=== PATIENT | female | born 1985 | race Caucasian/White ===

== ENCOUNTER 2017-02-28 06:37 | Inpatient (IN) | payer BC, OTHER ==
[~2017-02-28] VITALS: Ht 152.4 cm; Wt 86.2 kg
[2017-02-28] VITALS (8 sets, daily range): BP systolic 100–118; BP diastolic 50–71
[~2017-02-28 06:37] MED LIST: COLACE100 MG PO; Colace PO; Dilaudid PO; Feosol PO; Motrin PO; PRENATAL TABLE1 EAC3 PO
[2017-02-28 07:56] LABS: EOSINOPHIL (%) 1.2 % (0-5); EOSINOPHIL COUNT 0.1 K/uL (0-0.3); HEMATOCRIT 31.2 % (36.0-46.0); IMMATURE GRANULOCYTE (%) 1.5 % (0.0-0.7); IMMATURE GRANULOCYTE COUNT 0.2 K/uL; INSTRUMENT ABS NEUTROPHIL CT 7.1 K/uL; LYMPHOCYTE COUNT 2.1 K/uL (1.0-2.8); MCH 24.6 PG (29.0-34.0); MCHC 31.1 G/DL (30.0-36.0); MCV 79.2 FL (83-99); MEAN PLAT.VOLUME 9.9 uM^3 (9.5-12.4); MONOCYTE (%) 4.9 % (3-12); MONOCYTE COUNT 0.5 K/uL (0-0.8); NEUTROPHIL (%) 71.2 % (45-76); NEUTROPHIL COUNT 7.1 K/uL (1.8-6.4); PLATELET COUNT 295 K/uL (156-360); RBC DIS.WIDTH-CV 15.7 % (11.8-14.6); RBC DIS.WIDTH-SD 44.7 % (39-53); RED BLOOD COUNT 3.94 M/uL (3.80-5.20)
[2017-02-28 15:57] LABS: HEMATOCRIT 23.6 % (36.0-46.0); MCH 25.1 PG (29.0-34.0); MCHC 31.4 G/DL (30.0-36.0); MEAN PLAT.VOLUME 9.6 uM^3 (9.5-12.4); PLATELET COUNT 244 K/uL (156-360); RBC DIS.WIDTH-CV 15.7 % (11.8-14.6); RBC DIS.WIDTH-SD 45.2 % (39-53); WHITE BLOOD COUNT 12.2 K/uL (4.1-10.2)
[2017-02-28 16:08] LABS: RED BLOOD COUNT 2.95 M/uL (3.80-5.20)
[2017-03-01 03:53] VITALS: BP 94/50
[2017-03-01 06:24] LABS: EOSINOPHIL COUNT 0.1 K/uL (0-0.3); HEMATOCRIT 22.3 % (36.0-46.0); IMMATURE GRANULOCYTE (%) 0.9 % (0.0-0.7); IMMATURE GRANULOCYTE COUNT 0.1 K/uL; INSTRUMENT ABS NEUTROPHIL CT 7.3 K/uL; LYMPHOCYTE COUNT 1.6 K/uL (1.0-2.8); MCH 24.4 PG (29.0-34.0); MCHC 30.5 G/DL (30.0-36.0); MCV 79.9 FL (83-99); MEAN PLAT.VOLUME 9.6 uM^3 (9.5-12.4); MONOCYTE (%) 6.6 % (3-12); MONOCYTE COUNT 0.6 K/uL (0-0.8); NEUTROPHIL (%) 75.2 % (45-76); NEUTROPHIL COUNT 7.3 K/uL (1.8-6.4); PLATELET COUNT 216 K/uL (156-360); RBC DIS.WIDTH-CV 15.9 % (11.8-14.6); RED BLOOD COUNT 2.79 M/uL (3.80-5.20); WHITE BLOOD COUNT 9.7 K/uL (4.1-10.2)
[2017-03-01 07:26] VITALS: BP 101/57
[2017-03-01 11:40] VITALS: BP 109/55
[2017-03-01 15:40] VITALS: BP 102/55
[2017-03-01 19:00] VITALS: BP 107/57
[2017-03-01 22:30] VITALS: BP 104/52
[2017-03-02] VITALS (7 sets, daily range): BP systolic 92–116; BP diastolic 54–65
[2017-03-02] MEDS ORDERED: DOCUSATE SODIU100 MG PO (13:59)
[2017-03-02] MEDS ORDERED: FERROUS SULFAT325 MG PO (13:59)
[2017-03-02] MEDS ORDERED: IBUPROFEN800 MG PO (13:59)
[2017-03-02] MEDS ORDERED: HYDROMORPHONE HC2 MG PO (14:00)
[2017-03-02 16:34] LABS: HEMATOCRIT 21.6 % (36.0-46.0); MCH 25.8 PG (29.0-34.0); MCHC 31.5 G/DL (30.0-36.0); MCV 81.8 FL (83-99); MEAN PLAT.VOLUME 10.3 uM^3 (9.5-12.4); PLATELET COUNT 249 K/uL (156-360); RBC DIS.WIDTH-SD 47.7 % (39-53); RED BLOOD COUNT 2.64 M/uL (3.80-5.20); WHITE BLOOD COUNT 10.2 K/uL (4.1-10.2)
[2017-03-02] MEDS ORDERED: VITAMIN C500 M1 PO (18:39)
== END 2017-03-02 22:00 | disposition home or self-care (01) | DRG 765 ==
LOC: 2WEST 06:37 → 2SOUTH 09:21 → 2WEST 03-02 22:00
PROVIDERS: Obstetrics & Gynecology
PROC: 10D00Z1 Extraction of Products of Conception, Low, Open Approach (ICD-10-PCS; principal; 2017-02-28)
PROC: 30233N1 Transfusion of Nonautologous Red Blood Cells into Peripheral Vein, Percutaneous Approach (ICD-10-PCS; 2017-03-02)
DX: O34.211 Maternal care for low transverse scar from previous cesarean delivery (principal); D62 Acute posthemorrhagic anemia; O99.214 Obesity complicating childbirth; E66.9 Obesity, unspecified; Z3A.39 39 weeks gestation of pregnancy; Z37.0 Single live birth; O99.02 Anemia complicating childbirth; Z87.440 Personal history of urinary (tract) infections; Z68.35 Body mass index [BMI] 35.0-35.9, adult; Z83.3 Family history of diabetes mellitus; D50.9 Iron deficiency anemia, unspecified
CPT/HCPCS: 85025; 85027; 86900; 86901; 86920; J0131; J0690; J1885; J2274; J2405; J2590; J3010; J7120; P9016